=== PATIENT | female | born 1970 | race Caucasian/White ===

== ENCOUNTER 2022-04-05 00:10 | Emergency (ER) | payer BC ==
[2022-04-05 01:07] LABS: Basophils # (A) 0.1 k/uL (0-0.2); Basophils % (A) 1 %; Eosinophils # (A) 0.2 k/uL (0-0.7); Eosinophils % (A) 2 %; HCT 39.9 % (34.0-46.0); HGB 13.2 gm/dL (11.4-16.0); Lymphocytes # (A) 1.4 k/uL (1.0-4.8); Lymphocytes % (A) 17 %; MCH 30.9 pg (25.0-35.0); MCHC 33.2 g/dL (31.0-37.0); MCV 92.9 fL (80.0-100.0); Mean Platelet Volume 8.3; Monocytes # (A) 0.5 k/uL (0-1.0); Monocytes % (A) 6 %; Neutrophils # (A) 5.9 k/uL (1.3-7.7); Neutrophils % (A) 73 %; Platelet Count 244 k/uL (150-450); RBC 4.29 m/uL (3.80-5.40); RDW 12.7 % (11.5-15.5); WBC 8.1 k/uL (3.8-10.6)
--- NOTE | 2022-04-05 01:08 | XR ---
EXAMINATION TYPE: XR chest 2V DATE OF EXAM: 04/05/2022 Chest 2 views. History chest pain. Comparison December 27, 2011. FINDINGS: Heart and mediastinum are normal. Lungs are clear. Diaphragm is normal. Bony thorax appears normal. IMPRESSION: Normal chest. No change.
[2022-04-05 01:21] LABS: INR 0.9 (<1.2); Prothrombin Time 10.1 sec (9.0-12.0)
[2022-04-05 01:30] LABS: Albumin 4.6 g/dL (3.5-5.0); Calcium 9.5 mg/dL (8.4-10.2); Magnesium 1.7 mg/dL (1.6-2.3); Total Bilirubin 0.3 mg/dL (0.2-1.3); Total Protein 7.7 g/dL (6.3-8.2)
--- NOTE | 2022-04-05 02:09 | ED ---
Chest Pain HPI - General Chief Complaint: Chest Pain Stated Complaint: Chest Pain Time Seen by Provider: 04/05/22 02:03 Source: patient Mode of arrival: ambulatory Limitations: no limitations - History of Present Illness Initial Comments: This patient is 52-year-old woman who presents to be evaluated for chest pressure. She states that it started around 8:30 tonight. She had gone to lie down and noticed that there was a heavy feeling on her chest. She did not notice any worsening or relieving factors. It was constant for number of hours and then it seemed to be intermittent. When things did not resolve she came here for evaluation. There were no associated symptoms. No smoking history. No family history. MD Complaint: chest pain Onset/Timin -: hour(s) Onset: during rest Pain Location: substernal Pain Radiation: none Severity: mild Quality: heaviness Consistency: now resolved Improves With: nothing Worsens With: nothing Treatments Prior to Arrival: none - Related Data Allergies Allergy/AdvReac Type Severity Reaction Status Date / Time No Known Allergies Allergy Verified 04/05/22 00:19 Review of Systems ROS Statement: Those systems with pertinent positive or pertinent negative responses have been documented in the HPI. ROS Other: All systems not noted in ROS Statement are negative. Constitutional: Denies: fever, chills Respiratory: Denies: cough, dyspnea Cardiovascular: Reports: as per HPI, chest pain. Denies: palpitations, orth opnea, edema, syncope Gastrointestinal: Denies: abdominal pain, nausea, vomiting, diarrhea Genitourinary: Denies: dysuria, hematuria Musculoskeletal: Denies: back pain Skin: Denies: rash Neurological: Denies: headache, weakness, numbness EKG Findings - EKG Results: EKG: interpreted by ERMD, sinus rhythm (Rate 98 bpm), normal axis, normal QRS, normal ST/T Past Medical History Past Medical History: Hyperlipidemia, Hypertension History of Any Multi-Drug Resistant Organisms: None Reported Past Surgical History: Cholecystectomy Past Psychological History: No Psychological Hx Reported Smoking Status: Never smoker Past Alcohol Use History: None Reported Past Drug Use History: None Reported General Exam Limitations: no limitations General appearance: alert, in no apparent distress Head exam: Present: atraumatic, normocephalic Eye exam: Present: normal appearance. Absent: scleral icterus, conjunctival injection ENT exam: Present: normal oropharynx Neck exam: Present: normal inspection, full ROM Respiratory exam: Present: normal lung sounds bilaterally. Absent: respiratory distress, wheezes, rales, rhonchi, stridor Cardiovascular Exam: Present: regular rate, normal rhythm, normal heart sounds. Absent: systolic murmur, diastolic murmur, rubs, gallop GI/Abdominal exam: Present: soft. Absent: distended, tenderness, guarding, rebound, rigid, mass Extremities exam: Present: normal inspection, normal capillary refill. Absent: pedal edema, calf tenderness Back exam: Present: normal inspection. Absent: CVA tenderness (R), CVA tenderness (L) Neurological exam: Present: alert Skin exam: Present: warm, dry, intact, normal color. Absent: rash Course Vital Signs 04/05/22 00:16 Temperature 98.8 F Pulse Rate 94 Respiratory 18 Rate Blood Pressure 156/88 O2 Sat by Pulse 100 Oximetry Disposition Clinical Impression: Chest pain Disposition: HOME SELF-CARE Condition: Good Instructions (If sedation given, give patient instructions): Chest Pain (ED) Is patient prescribed a controlled substance at d/c from ED?: No Referrals: Trenton Hernandez DO [Primary Care Provider] - 1-2 days
[2022-04-05 02:55] VITALS: BP 150/78; PULSE 84; RESP 17; TEMP 98
== END 2022-04-05 02:55 | disposition home or self-care (01) ==
LOC: EC 00:10
DX: R07.89 Other chest pain (principal); I10 Essential (primary) hypertension; E78.5 Hyperlipidemia, unspecified
CPT/HCPCS: 36415; 71046; 80053; 83735; 84484; 85025; 85610; 85730; 93005; 99285

== ENCOUNTER → 2022-05-03 | Outpatient (CLI) | payer BC ==
--- NOTE | 2022-05-04 08:24 | CA ---
Transthoracic Echo Report Name: Pippa Membreno Age: 52 Gender: F : 1970 Exam Date: 05/03/2022 14:49 Exam Location: [facility] [facility] Ht (in): 62 Wt (lb): 165 Ordering Physician: Trenton Hernandez DO Attending/Referring Phys: Alison Greenfield PAC Environmental Technical Officer Malka Mariano RDCS Procedure CPT: Indications: R07.89 OTHER CHEST PAIN, I10 HYPERTENSION Cardiac Hx: Technical Quality: Fair Contrast 1: Total Dose (mL): Contrast 2: Total Dose (mL): MEASUREMENTS (Male / Female) Normal Values 2D ECHO LV Diastolic Diameter PLAX 4.2 cm 4.2 - 5.9 / 3.9 - 5.3 cm LV Systolic Diameter PLAX 3.0 cm IVS Diastolic Thickness 0.8 cm 0.6 - 1.0 / 0.6 - 0.9 cm LVPW Diastolic Thickness 1.1 cm 0.6 - 1.0 / 0.6 - 0.9 cm LV Relative Wall Thickness 0.5 RV Internal Dim ED PLAX 3.1 cm LA Volume 28.6 cm??? 18 - 58 / 22 - 52 cm??? M-MODE Aortic Root Diameter MM 2.9 cm LA Systolic Diameter MM 3.2 cm LA Ao Ratio MM 1.1 AV Cusp Separation MM 1.7 cm DOPPLER AV Peak Velocity 164.5 cm/s AV Peak Gradient 10.8 mmHg LVOT Peak Velocity 117.9 cm/s LVOT Peak Gradient 5.6 mmHg MV Area PHT 3.7 cm??? Mitral E Point Velocity 74.3 cm/s Mitral A Point Velocity 96.3 cm/s Mitral E to A Ratio 0.8 MV Deceleration Time 203.1 ms MV E' Velocity 7.2 cm/s Mitral E to MV E' Ratio 10.3 TR Peak Velocity 197.7 cm/s TR Peak Gradient 15.6 mmHg Right Ventricular Systolic Press 20.2 mmHg FINDINGS Left Ventricle Normal Left ventricular size, wall thickness, systolic function with no obvious regional wall motion abnormalities. Normal Left ventricular diastolic filling pattern. Left ventricular ejection fraction is estimated at 55-60 %. Right Ventricle Normal right ventricular size and function. Right ventricular systolic pressure within normal limits. Right Atrium Normal right atrial size. Left Atrium Normal left atrial size. No evidence for an atrial septal defect. Mitral Valve Structurally normal mitral valve. No mitral stenosis. Trace to mild mitral regurgitation. Aortic Valve Trileaflet aortic valve. No aortic valve stenosis or regurgitation. Tricuspid Valve Structurally normal tricuspid valve. Trace to mild tricuspid regurgitation. Pulmonic Valve Structurally normal pulmonic valve. Trace pulmonic regurgitation. Pericardium Normal pericardium. Aorta Normal size aortic root and proximal ascending aorta. CONCLUSIONS Normal LV size and systolic function. Borderline concentric LVH. No significant abnormality on Doppler exam no pericardial effusion Previewed by: Dr. Elizabet Mcclure MD (Electronically Signed) Final Date: 04 May 2022 08:24
== END | disposition home or self-care (01) ==
LOC: RADECHMAIN 14:45
PROVIDERS: ATTEND Family Medicine
DX: I10 Essential (primary) hypertension (principal); E78.2 Mixed hyperlipidemia; I08.3 Combined rheumatic disorders of mitral, aortic and tricuspid valves
CPT/HCPCS: 93306

== ENCOUNTER → 2022-05-10 | Outpatient (CLI) | payer BC ==
--- NOTE | 2022-05-10 10:04 | CA ---
Exercise Stress Test Report Name: Pippa Membreno Exam Date: 05/10/2022 09:02 Exam Location: [facility] Ht (in): 62 Wt (lb): 165 BSA: 1.76 Ordering Phys: Trenton Hernandez DO Referring Phys: Alison Greenfield PAC Technologist: Monster Ley Age: 52 Gender: F : 1970 Procedure CPT: Indications: R07.89 other chest pain ICD-10 Codes: Patient History: Medications: LEVOTHYROXINE, LISINOPRIL, ATORVASTATIN, COQ-10, SLYND Meds past 24 hrs: Pretest Chest Pain: STRESS TEST Jose Protocol Exercise Duration (min:sec): 09:[address] Depressions (mm): Angina Score: Bal Score: Resting HR (bpm): 88 Peak HR (bpm): 166 Resting BP (mmHg): 127 / 79 Peak BP (mmHg): 162 / 83 MPHR: 168 Target HR: 143 % MPHR: 99 METS: 10.3 Total Dose: Peak Dose: Atropine: Double Product: 01199 BP Response: Stress Termination: Reached target heart rate Stress Symptoms: NO SYPMTOMS Stress Summary: ECG ANALYSIS Resting ECG: Stress ECG: CONCLUSIONS Baseline 78 beats a minute, Baseline blood pressure 127/79 mmHg Baseline EKG showed sinus rhythm normal ST segments Patient exercised on a Jose protocol for 9 minutes, achieving a peak heart rate of 166 beats a minute Normal blood pressure response No symptoms No ECG evidence for ischemia No arrhythmias Impression Normal stress test Dr. Marty Sargent MD (Electronically Signed) Final Date: 10 May 2022 10:03
== END | disposition home or self-care (01) ==
LOC: RADNMMAIN 08:40
PROVIDERS: ATTEND Family Medicine
DX: R07.89 Other chest pain (principal)
CPT/HCPCS: 93017

== ENCOUNTER → 2024-11-17 | Outpatient (CLI) | payer BC ==
--- NOTE | 2024-11-17 14:42 | XR ---
EXAMINATION TYPE: XR chest 2V DATE OF EXAM: 11/17/2024 1:43 PM COMPARISON: 04/05/2022 CLINICAL INDICATION: Female, 54 years old with history of R052 SUBACUTE COUGH, , TECHNIQUE: Frontal and lateral views FINDINGS: Heart normal size. Aorta and pulmonary vasculature within normal limits. No consolidation or pleural effusion. Cholecystectomy clips. IMPRESSION: No acute cardiopulmonary process. [facility], , 11/17/2024 2:40 PM
== END | disposition home or self-care (01) ==
LOC: RADXRYALE 13:32
PROVIDERS: ATTEND Physician Assistant Medical
DX: R05.2 Subacute cough (principal)
CPT/HCPCS: 71046